=== PATIENT | female | born 1930 | race Caucasian/White ===

== ENCOUNTER 2017-11-22 10:47 | Emergency (ER) | payer MEDICARE, BC ==
[~2017-11-22] VITALS: Ht 160 cm; Wt 68.2 kg
[~2017-11-22 10:47] MED LIST: ASPI-611 PO; CELE-54 PO; CHOL2000 PO; CLOP75TA15 PO; CYAN-19 PO; IBAN150T PO; SYN0.025T PO
[2017-11-22 12:15] VITALS: BP 139/85
== END 2017-11-22 13:48 | disposition home or self-care (01) ==
LOC: ER 10:47
DX: S81.802A Unspecified open wound, left lower leg, initial encounter (principal); I48.91 Unspecified atrial fibrillation; G89.29 Other chronic pain; Z98.890 Other specified postprocedural states; Z88.0 Allergy status to penicillin; Z79.82 Long term (current) use of aspirin; Z79.899 Other long term (current) drug therapy; X58.XXXA Exposure to other specified factors, initial encounter; Y93.89 Activity, other specified; Y92.89 Other specified places as the place of occurrence of the external cause; Y99.8 Other external cause status
CPT/HCPCS: 93971; 99284; A6255; A6257

== ENCOUNTER 2019-04-09 16:12 | Emergency (ER) | payer MEDICARE, BC ==
[~2019-04-09] VITALS: Ht 165.1 cm; Wt 63.6 kg
[~2019-04-09 16:12] MED LIST changes: -CYAN-19 PO; +CYAN100019 PO; -IBAN150T PO; +IBAN150T16 PO
--- NOTE | 2019-04-09 18:30 | NUR ---
Note brandon in EDM - 04/09/19 at 1831 by RICARDO PT AWAITING IPA. STABLE VS. REPORTS NO PAIN, ONLY PAINFUL BLE IF PALPATED. PTS DAUGHTER AND AT BEDSIDE. ALL ARE PLEASANT AND COOPERATIVE. RECEIVING ROCEFIN IVPB NOW.
--- NOTE | 2019-04-09 18:46 | NUR ---
Left leg vascular us in progress now. Pt's daughter at bedside. htn, 181/91
[2019-04-09 19:52] VITALS: BP 177/83
== END 2019-04-09 19:54 | disposition home or self-care (01) ==
LOC: ER 16:13
DX: M79.662 Pain in left lower leg (principal); R25.2 Cramp and spasm; G89.29 Other chronic pain; Z86.73 Personal history of transient ischemic attack (TIA), and cerebral infarction without residual deficits; Z98.890 Other specified postprocedural states; Z79.899 Other long term (current) drug therapy; Z88.0 Allergy status to penicillin; Z79.82 Long term (current) use of aspirin; Z86.718 Personal history of other venous thrombosis and embolism
CPT/HCPCS: 93971; 99284